=== PATIENT | male | born 2000 | race Two or more races ===

== ENCOUNTER 2020-08-24 22:41 | Emergency (ER) | payer OTHER ==
[~2020-08-24] VITALS: Ht 185.4 cm; Wt 77.1 kg
[2020-08-24 23:19] VITALS: BP 122/66
[2020-08-24 23:20] LABS: Urine WBC None Seen /hpf (0 - 3)
[2020-08-24 23:32] LABS: Urine Bacteria NONE SEEN /hpf (None Seen); Urine Blood TRACE /uL (Negative); Urine Mucus FEW (None Seen); Urine Specific Gravity 1.032 (1.001-1.035)
[2020-08-25] MEDS ORDERED: AZITHROMYCIN 250 MG TAB PO ONE (04:30)
[2020-08-25] MEDS ORDERED: cefTRIAXone SOD 1,000 MG VL IM ONE (04:30)
[2020-08-25] MEDS ORDERED: LIDOCAINE 1% HCL (LOCAL ANESTH.) INJ 20ML MDV ONE (04:34)
== END 2020-08-25 05:35 | disposition home or self-care (01) ==
LOC: ER 22:41
DX: B35.6 Tinea cruris (principal); Z20.2 Contact with and (suspected) exposure to infections with a predominantly sexual mode of transmission
CPT/HCPCS: 81001; 96372; 99283; J0696; J2001

== ENCOUNTER 2022-07-02 16:03 | Emergency (ER) | payer OTHER, BC ==
[~2022-07-02] VITALS: Ht 185.4 cm; Wt 98.1 kg
[2022-07-02 16:55] LABS: Urine Bacteria NONE SEEN /hpf (None Seen); Urine Blood TRACE /uL (Negative); Urine Mucus FEW (None Seen); Urine Specific Gravity 1.031 (1.001-1.035); Urine WBC 1 /hpf (0 - 3)
[2022-07-02 16:58] LABS: Basophils # (auto) 0.2 10 ^3/uL (0-0.2); Basophils % (auto) 1.3 % (0.0-2.0); Eosinophils # (auto) 0.1 10 ^3/uL (0-0.8); Hematocrit 47.9 % (41.0-53.0); Hemoglobin 16.2 g/dL (13.5-17.5); Lymphocytes # (auto) 0.4 10 ^3/uL (0.4-5.4); Lymphocytes % (auto) 3.5 % (10.0-50.0); Mean Corpuscular Hemoglobin 28.3 pg (28.0-32.0); Mean Corpuscular Hgb Conc. 33.8 g/dL (32.0-36.0); Mean Corpuscular Volume 83.6 fL (80.0-100.0); Monocytes # (auto) 0.4 10 ^3/uL (0-1.3); Monocytes % (auto) 3.5 % (0.0-12.0); Neutrophils # (auto) 11.3 10 ^3/uL (1.6-8.6); Neutrophils % (auto) 90.7 % (37.0-80.0); Red Blood Cells 5.72 10^6/uL (4.5-5.90); Red Cell Distribution Width 12.9 % (11.8-14.3); White Blood Cell 12.5 10^3/uL (4.4-10.8)
[2022-07-02 17:15] LABS: Albumin 4.2 g/dL (3.4-5.0); Calcium 8.6 mg/dL (8.5-10.1); Potassium 3.9 mmol/L (3.5-5.1)
[2022-07-02 17:18] LABS: BUN/Creatinine Ratio 27.5; Bilirubin, Total 0.9 mg/dL (0.2-1.0); Total Protein 7.6 g/dL (6.4-8.2)
[2022-07-02 17:19] LABS: Amylase 34 U/L (25-115); Lipase 50 U/L (73-393)
[2022-07-02] MEDS ORDERED: ONDANSETRON HCL 4 MG/2 ML VIAL IV ONE (18:15)
[2022-07-02] MEDS ORDERED: IOHEXOL 300 MG/ML 100ML BOTTLE IJ ONE (19:25)
[2022-07-02 21:33] VITALS: BP 114/59
== END 2022-07-02 21:34 | disposition home or self-care (01) ==
LOC: ER 16:03
DX: K29.70 Gastritis, unspecified, without bleeding (principal); K52.9 Noninfective gastroenteritis and colitis, unspecified; F41.9 Anxiety disorder, unspecified
CPT/HCPCS: 36415; 72100; 74022; 74176; 80053; 81001; 82150; 83690; 85025